=== PATIENT | female | born 1995 | race Caucasian/White ===

== ENCOUNTER 2025-01-26 09:11 | Emergency (ER) | payer OTHER, SELFPAY ==
[2025-01-26 09:18] VITALS: BP 126/80
--- NOTE | 2025-01-26 10:55 | ED.GENMED ---
History of Present Illness
General
Chief Complaint: Abdominal Symptoms
Source: patient
Exam Limitations: none
Time Seen by Provider: 01/26/25 10:40
Nursing documentation reviewed up to this point in time: agreed with
History of Present Illness
History of Present Illness:
29-year-old female with history as noted presents to the emergency room for evaluation of nausea, vomiting, diarrhea. Patient reports that for the past 24 hours she has been having profuse nausea and vomiting anytime she tries to eat something.
She says that she has been having repeated episodes of liquid diarrhea. She reports occasional blood when wiping but she believes this is from hemorrhoids. She said she had a fever last night with a Tmax of 101 �F which seems to have improved
today. She has had some associated abdominal cramping. She says she is starting to feel mildly lightheaded and thinks she could be dehydrated which prompted her to come to the ER. He is also concerned that because of her vomiting she has not been
able to take her medications specifically her ziprasidone. She does note that she was visiting a friend recently who was child was sick with similar symptoms. Denies any recent travel or antibiotics.
Past History
Past History
ED Past Medical History: Asthma and Psychiatric (Anxiety)
ED Past Surgical History: Other ([place] teeth)
Social History
Tobacco: Smoker
Alcohol: Occasional
Drug: None
Review of Systems
Review of Systems
All Other Systems: ROS reviewed and negative except as documented in HPI and ROS
Constitutional: Reports fever and fatigue
Respiratory: Denies cough or trouble breathing
Cardiac: Denies chest pain
ABD/GI: Reports abdominal pain, nausea, vomiting and diarrhea
: Denies flank pain or bleeding
Musculoskeletal: Denies neck pain or back pain
Neurological: Reports dizzy; Denies headache
Phy Exam
Physical Exam
Physical Exam:
General: Awake, alert, oriented x3; no acute distress
Head: Normocephalic, atraumatic
Eyes: Conjunctiva normal, sclera anicteric
Throat: Airway intact, dry mucous membrane
Neck: Trachea midline, supple without meningismus
Lungs: Clear to auscultation bilaterally, no wheezing, rales, rhonchi
Heart: Tachycardia with regular rhythm, no murmurs, gallops, or rubs
Abd: Soft, non distended, very mildly tender diffusely but no peritoneal signs and no masses
Neuro: No gross deficits
Skin: no rash
Extremities: Warm and well-perfused
Scores
Heart Failure Risk
Heart Failure Risk Score: Not Applicable
Heart Score for Chest Pain Patients
STEMI patient?: Not applicable
Withdrawal Assessment of Alcohol
Withdrawal Assessment Completed?: Not applicable
Sepsis
Sepsis Screening
Sepsis Assessment: Sepsis Ruled Out
Sepsis Screen
Sepsis Screen: Sepsis Ruled Out
Date: 01/26/25
Time: 13:48
Course
Orders/Labs/Results
Orders:
Orders
01/26/25 10:10
Test Result ONCE
01/26/25 10:41
Norovirus by PCR Urgent
HIRAM Source: Feces/Stool
Specimen Description:
Stool Culture Urgent
HIRAM Source: Feces/Stool
Specimen Description:
01/26/25 10:54
Encourage PO Hydration-Treatme ONCE
Ondansetron Injectable [Zofran] 4 mg IV NOW STA
01/26/25 10:55
Electrocardiogram (*1) Urgent
Reason for Study: QTc Monitoring
EKG- Treatment ONCE
0.9% Sodium Chloride 1000 ml [Nss] 1,000 ml IV BOLUS
01/26/25 11:16
Complete Blood Count/With Diff Urgent
Comprehensive Metabolic Panel Urgent
HCG, Serum Qualitative Screen Urgent
Lipase Urgent
01/26/25 12:[address] Non Medication Order As Directed
Physician Order: PO CHALLENGE WITH FOOD
01/26/25 12:45
0.9% Sodium Chloride 1000 ml [Nss] 1,000 ml IV 125 mls/hr
Abnormal Lab Results
01/26/25
11:16
MCH 31.4 H pg
(27.0-31.0)
MPV 10.6 H fL
(7.4-10.4)
Absolute Neuts (auto) 7.2 H 10^3/uL
(1.4-6.5)
Absolute Lymphs (auto) 0.6 L 10^3/uL
(1.2-3.4)
Neutrophils % 85.4 H %
(42.2-75.2)
Lymphocytes % 7.4 L %
(20.5-51.1)
Carbon Dioxide 18 L mmol/L
(22-30)
BUN 20 H mg/dl
(7-17)
Albumin 5.2 H g/dl
(3.5-5.0)
01/26/25 11:16
01/26/25 11:16
Vital Signs
Initial and Last Documented VS:
Initial Vital Signs
Temp Pulse Resp BP Pulse Ox
37.0 C 113 16 126/80 98
01/26/25 09:18 01/26/25 09:18 01/26/25 09:18 01/26/25 09:18 01/26/25 09:18
Last Documented Vital Signs
Temp Pulse Resp BP Pulse Ox
37.0 C 91 16 109/72 99
01/26/25 09:18 01/26/25 12:45 01/26/25 12:45 01/26/25 12:00 01/26/25 12:45
MDM/Problems Addressed
Differential Diagnosis Includes:
Gastroenteritis, colitis
MDM/Problems Addressed:
29-year-old female presents to the ER for evaluation of nausea/vomiting/diarrhea associated with some crampy abdominal pain for the past 24 hours. Tachycardic but otherwise normal vitals. Physical exam as above. She does appear mildly dehydrated.
Will plan to place an IV check labs including a CBC and a CMP, hCG. Will send stool studies if able to provide sample. Will provide fluids, antiemetic. EKG for QTc monitoring. Will reassess after the above�suspect this is likely a viral
gastroenteritis and in my judgment no indication for emergent abdominal imaging at this point with very low clinical suspicion for surgical pathology or intra-abdominal emergency based on history and exam.
Labs reviewed: CBC unremarkable, CMP shows mild metabolic acidosis likely from GI losses and possibly some element of ketosis as she says she has not been eating very much. Her hCG is negative. EKG shows acceptable QTc. On reassessment after
medications and fluids patient is feeling much better. Has not had additional vomiting. She has been tolerating sips of water. She has no abdominal pain. Will continue fluids, trial food by mouth and reassess.
Patient continues to feel well after medications here. Heart rate has normalized. She is tolerating p.o. food and liquid without additional vomiting. She has been observed in the emergency room for 4+ hours and has not been able to provide a
stool sample despite her report of profuse diarrhea at home. Suspect likely viral gastroenteritis I think she is stable for discharge at this point in time and can follow-up for outpatient stool studies with her primary doctor as needed. Patient
feels comfortable with this plan. Spoke about return precautions all questions answered.
*Pulse Oximetry
SaO2: 98
Oxygen Mode of Delivery: Room air
Patient hypoxic: no (98%)
*EKG
Interpreted by ED Provider?: Yes
Comparison EKG: no changes
Heart Rate: 82
Rate: normal
Rhythm: sinus
Interval: normal interval and normal QT interval
QRS Pattern: normal QRS
Ischemia: no ischemia
*Critical Care Note
Total Time (30-74mins, 75-104mins- exclusive of procedures): Not Applicable
Data Reviewed
Review of Other/Old Records Reveals: Labs and Records
Source: patient, records and significant other
Further Testing Considered But Not Given:
Considered CT abdomen and pelvis
ED Attending Note
-
Portions of this chart may have been created with voice recognition software.� Occasional wrong word or��sound alike� substitutions may have occurred due to the inherent limitations of voice recognition software.
Discharge Plan
Departure
Patient Disposition: Home (Routine Discharge)
Date of Disposition: 01/26/25
Time of Disposition: 13:49
Patient with high blood pressure during this ER visit?: No
Discharge Problem:
Gastroenteritis, Acute dehydration
Instructions: Viral gastroenteritis in adults, Dehydration, Adult (DC), [place] Diet
Prescriptions:
New
ondansetron 4 mg tablet,disintegrating
4 mg PO TIDPRN PRN (Reason: nausea/vomiting) Qty: 20 0RF
No Action
dicyclomine 10 mg capsule
10 mg PO QID PRN (Reason: cramps) Qty: 14 0RF
alprazolam 2 mg Tablet
0.5 mg PO TIDPRN PRN (Reason: anxiety)
ondansetron 4 mg Tablet,Disintegrating
4 mg PO TIDPRN PRN (Reason: nausea/vomiting) Qty: 12 0RF
amoxicillin-pot clavulanate 875-125 mg tablet
1 tab PO BID Qty: 14 0RF
Referrals:
Marilyn Michel MD [Family Provider, Family Practice] - Follow up in 1 week
Activity Restrictions/Additional Instructions:
You should maintain a bland diet as we discussed. You should make sure you are drinking plenty of fluids. You can take the nausea medicine (ondansetron) as needed at home. You should follow-up with your primary doctor next week. If you feel like
your symptoms are worsening or if vomiting returns despite medications you should return to the emergency room.
Thank you for visiting the Emergency Department at [facility].
1. Please schedule a follow up appointment as directed. Call first thing tomorrow morning to make an appointment.
2. If indicated, please take your medications as instructed and indicated on discharge paperwork.
3. If any of your symptoms do not improve, or persist, or become more severe within 6-12 hours, please return to the emergency department for further care.
4. Please return to the emergency department if you develop a headache, neck pain/stiffness, fever greater than 100.4F, chest pain, shortness of breath, persistent nausea, vomiting, slurred speech, difficulty walking, numbness/tingling, weakness,
signs of infection or any other symptoms that are worrisome to you.
Please call [phone] if you have any questions.
Interventions
Interventions:
*Risk Screen - Suicide Last Done: 01/26/25 09:18
*General Assessment Last Done: 01/26/25 11:25
*Neglect/Abuse Screening Last Done: 01/26/25 09:18
*ED- Fall Risk Assessment Last Done: 01/26/25 11:25
*ED COVID-19 Vaccine History Last Done: 01/26/25 11:25
VD-[id number]-Wlgvsyisow Assessment Last Done: 01/26/25 11:25
Discharge Date and Time
Print Language: ZAMBIAN
[2025-01-26] MEDS: NSS 1000 IV ×2 (11:17→12:44)
[2025-01-26] MEDS: ZOFRAN 4 MG IV ×2 (11:17→13:59)
[2025-01-26 11:19] VITALS: BP 115/72
[2025-01-26 11:29] LABS: Hematocrit 42.6 % (37.0-47.0); Hemoglobin 14.9 g/dL (12.0-16.0); Mean Corp Hgb Conc. 35.0 g/dL (33.0-37.0); Mean Corpuscular Volume 89.7 fL (81.0-99.0); Nucleated Red Blood Cells % 0 %; Platelet Count 240 10^3/uL (130-400); Red Cell Dist. Width 11.9 % (11.5-14.5)
[2025-01-26 12:00] VITALS: BP 109/72
[2025-01-26 12:06] LABS: HCG, Serum Qualitative Screen Negative
[2025-01-26 12:18] LABS: ALT (SGPT) 30 U/L (0-35); AST (SGOT) 27 U/L (14-36); Albumin 5.2 g/dl (3.5-5.0); Alkaline Phosphatase 76 U/L (38-126); Blood Urea Nitrogen 20 mg/dl (7-17); Calcium 9.7 mg/dl (8.4-10.2); Carbon Dioxide 18 mmol/L (22-30); Chloride 104 mmol/L (98-107); Glucose 87 mg/dl (70-99); Lipase 55 U/L (23-300); Potassium 3.9 mmol/L (3.5-5.1); Sodium 137 mmol/L (135-145); Total Protein 7.9 g/dl (6.3-8.2); eGFR > 60.00
[2025-01-26 13:00] VITALS: BP 109/74
[2025-01-26 14:00] VITALS: BP 111/72
== END 2025-01-26 14:35 | disposition home or self-care (01) ==
LOC: EMR 09:11
PROVIDERS: Emergency Medicine; EMERGENCY PHYSICIAN Emergency Medicine; FAMILY PHYSICIAN Family Medicine
DX: K52.9 Noninfective gastroenteritis and colitis, unspecified (principal); E86.0 Dehydration; J45.909 Unspecified asthma, uncomplicated; F17.200 Nicotine dependence, unspecified, uncomplicated
CPT/HCPCS: 96374; 96375; 96361; 99284; 80053; 83690; 84703; 85025; 93005

== ENCOUNTER 2025-05-05 12:40 | Emergency (ER) | payer OTHER, SELFPAY ==
[2025-05-05 12:41] VITALS: BMI 25.8
[2025-05-05 12:44] VITALS: BP 133/83
[2025-05-05] MEDS: ATIVAN 1 MG PO (14:43)
--- NOTE | 2025-05-05 15:01 | ED.GENMED ---
History of Present Illness
General
Chief Complaint: Crisis Evaluation
Source: patient
Exam Limitations: none
Time Seen by Provider: 05/05/25 13:59
Nursing documentation reviewed up to this point in time: agreed with
History of Present Illness
History of Present Illness:
29-year-old female history of anxiety, possibly bipolar disorder
Telepsychiatrist [employer] switched her Geodon to Lamictal has not been sleeping very well very anxious not homicidal not suicidal not intoxicated
Past History
Past History
ED Past Medical History: Asthma and Psychiatric (Anxiety possibly bipolar)
ED Past Surgical History: Other ([place] teeth)
Social History
Tobacco: Smoker
Alcohol: Occasional
Drug: None
Personal: Single
Living: with family
Employment: Employed
Review of Systems
Review of Systems
All Other Systems: Not applicable
Constitutional: Reports sleep disturbance
Psychiatric: Reports anxiety; Denies depression, suicidal or hallucinations
Phy Exam
Physical Exam
Physical Exam:
Physical Exam
General: no apparent distress, not acutely ill
Neck: No jaundice
Lungs: no acute respiratory distress.
Neuro: alert and oriented. no focal neurological deficits
Skin: no rash
Psychiatric: Cooperative not suicidal not homicidal not loose
Extremities: no edema.
Course
Orders/Labs/Results
Orders:
Orders
05/05/25 13:08
Crisis Consult Urgent
Reason for Consult: paranoia
05/05/25 14:38
Lorazepam [Ativan] 1 mg PO NOW STA
Vital Signs
Initial and Last Documented VS:
Initial Vital Signs
Temp Pulse Resp BP Pulse Ox
98.7 F 84 16 133/83 99
05/05/25 12:44 05/05/25 12:44 05/05/25 12:44 05/05/25 12:44 05/05/25 12:44
Last Documented Vital Signs
Temp Pulse Resp BP Pulse Ox
98.7 F 60 17 118/70 100
05/05/25 12:44 05/05/25 15:35 05/05/25 15:35 05/05/25 15:35 05/05/25 15:35
MDM/Problems Addressed
Differential Diagnosis Includes:
Anxiety med effect amina
MDM/Problems Addressed:
Anxiety
Chronic conditions affecting care: Psychiatric illness
Acute Exacerbation and/or Progression of Chronic Illness: Psychiatric illness
*Pulse Oximetry
SaO2: 99
Oxygen Mode of Delivery: Room air
Patient hypoxic: no
*Critical Care Note
Total Time (30-74mins, 75-104mins- exclusive of procedures): Not Applicable
Update Note
Update Note:
Update reviewed with crisis will try to get some close outpatient follow-up with a nonvirtual psychiatrist
ED Attending Note
-
Portions of this chart may have been created with voice recognition software.� Occasional wrong word or��sound alike� substitutions may have occurred due to the inherent limitations of voice recognition software.
Discharge Plan
Departure
Patient Disposition: Home (Routine Discharge)
Date of Disposition: 05/05/25
Time of Disposition: 15:03
Patient with high blood pressure during this ER visit?: No
Condition: Good
Discharge Problem:
Anxiety
Instructions: Anxiety, Adult (DC)
Prescriptions:
No Action
dicyclomine 10 mg capsule
10 mg PO QID PRN (Reason: cramps) Qty: 14 0RF
alprazolam 2 mg Tablet
0.5 mg PO TIDPRN PRN (Reason: anxiety)
ondansetron 4 mg Tablet,Disintegrating
4 mg PO TIDPRN PRN (Reason: nausea/vomiting) Qty: 12 0RF
amoxicillin-pot clavulanate 875-125 mg tablet
1 tab PO BID Qty: 14 0RF
ondansetron 4 mg tablet,disintegrating
4 mg PO TIDPRN PRN (Reason: nausea/vomiting) Qty: 20 0RF
Referrals:
Marilyn Michel MD [Family Provider, [facility]]
Stand Alone Forms: Return to Work
Activity Restrictions/Additional Instructions:
Follow-up with psychiatric resources provided to you by Jesus Ulloa
Interventions
Interventions:
*Risk Screen - Suicide Last Done: 05/05/25 12:43
*General Assessment Last Done: 05/05/25 12:44
*Neglect/Abuse Screening Last Done: 05/05/25 13:34
*ED- Fall Risk Assessment Last Done: 05/05/25 13:33
*ED COVID-19 Vaccine History Last Done: 05/05/25 13:33
*ED Influenza Vaccine History Last Done: 05/05/25 13:33
ED-Psychological Assessment Last Done: 05/05/25 13:36
Discharge Date and Time
Print Language: CHADIAN
[2025-05-05 15:35] VITALS: BP 118/70
== END 2025-05-05 16:30 | disposition home or self-care (01) ==
LOC: EMR 12:40
PROVIDERS: EMERGENCY PHYSICIAN Emergency Medicine; FAMILY PHYSICIAN Family Medicine
DX: F41.9 Anxiety disorder, unspecified (principal); J45.909 Unspecified asthma, uncomplicated; F17.200 Nicotine dependence, unspecified, uncomplicated
CPT/HCPCS: 99283